=== PATIENT | male | born 1980 | race Two or more races ===

== ENCOUNTER 2019-04-20 14:11 | Emergency (ER) | payer MEDICAID ==
[~2019-04-20] VITALS: Ht 165.1 cm; Wt 63.5 kg
--- NOTE | 2019-04-20 14:27 | NUR ---
PT CAME TO ER BED 7 C/O RIGHT LOWER ABDOMINAL PAIN. PT STATES THAT HE ALSO HAS CHEST PAIN THAT RIGHT LOWER ABDOMINAL PAIN. AAOX4. NO SOB. BREATHING EVENLY AND UNLABORED. CONNECTED TO MONITOR.
[2019-04-20] MEDS ORDERED: ONDANSETRON HCL/PF 4 MG/2 ML VIAL IVP ONE (14:30)
[2019-04-20] MEDS ORDERED: IV NS 0.9% 1,000 ML BAG IV ONE (14:30)
[2019-04-20] MEDS ORDERED: ONDANSETRON HCL/PF 4 MG/2 ML VIAL ONE (14:32)
[2019-04-20 14:39] LABS: BASOPHILS # (AUTO) 0.1 /CMM (0.0-0.2); BASOPHILS % (AUTO) 0.5 % (0.0-2.0); EOSINOPHILS % (AUTO) 0.6 % (0.0-6.0); HEMATOCRIT 50 % (39-51); HEMOGLOBIN 17.3 g/dL (13.5-17.5); LYMPHOCYTES # (AUTO) 1.7 /CMM (0.8-4.8); LYMPHOCYTES % (AUTO) 17.4 % (20.0-44.0); MEAN CORPUSCULAR HGB CONC 35 g/dl (31.0-36.0); MEAN CORPUSCULAR VOLUME 105 fL (80-96); MONOCYTES # (AUTO) 1.1 /CMM (0.1-1.30); MONOCYTES % (AUTO) 10.7 % (2.0-12.0); NEUTROPHILS % (AUTO) 70.8 % (43.0-81.0); PLATELET COUNT (AUTO) 229 /CMM (150-450); RED BLOOD CELL COUNT(AUTO) 4.78 MIL/uL (4.5-6.0); WHITE BLOOD COUNT (AUTO) 9.9 K/uL (4.3-11.0)
[2019-04-20 14:46] LABS: CALCIUM, SERUM 9.5 mg/dL (8.5-10.1); CARBON DIOXIDE 28 mmol/L (21-32); CHLORIDE 101 mmol/L (98-107); CREATININE 0.9 mg/dL (0.6-1.3); GLUCOSE 122 mg/dL (74-106); POTASSIUM 3.5 mmol/L (3.5-5.1); SODIUM SERUM 139 mmol/L (136-145); UREA NITROGEN, BLOOD 10 mg/dL (7-18)
[2019-04-20 14:52] LABS: ALANINE AMINOTRANSFERASE 40 U/L (12-78); ALCOHOL, BLOOD < 3 mg/dL (0-0); ALKALINE PHOSPHATASE 74 U/L (46-116); ASPARTATE AMINOTRANSFERASE 24 U/L (15-37); BILIRUBIN,DIRECT 0.2 mg/dL (0.0-0.2); BILIRUBIN,TOTAL 0.7 mg/dL (0.2-1.0); LIPASE 125 U/L (73-393); TOTAL PROTEIN, SERUM 7.5 g/dL (6.4-8.2)
[2019-04-20] MEDS ORDERED: PANTOPRAZOLE 40 MG VIAL IV ONE (15:00)
[2019-04-20] MEDS ORDERED: MAG HYDROX/AL HYDROX/SIMETH 30 ML UDC PO ONE (15:00)
[2019-04-20] MEDS ORDERED: LIDOCAINE VISCOUS 2% UD 15 ML UDC MM ONE (15:00)
[2019-04-20] MEDS ORDERED: PANTOPRAZOLE 40 MG VIAL ONE (15:18)
[2019-04-20] MEDS ORDERED: LIDOCAINE VISCOUS 2% UD 15 ML UDC ONE (15:18)
[2019-04-20] MEDS ORDERED: MAG HYDROX/AL HYDROX/SIMETH 30 ML UDC ONE (15:19)
[2019-04-20 15:57] VITALS: BP 115/73
--- NOTE | 2019-04-20 15:59 | NUR ---
IV removed. Catheter intact and site benign. Pressure and 4x4 applied to site. No bleeding noted. Patient discharged to home in stable condition. Written and verbal after care instructions given. Patient verbalizes understanding of instruction.
== END 2019-04-20 15:59 | disposition home or self-care (01) ==
LOC: ER 14:11
DX: R10.13 Epigastric pain (principal); F10.10 Alcohol abuse, uncomplicated; F12.10 Cannabis abuse, uncomplicated; Y90.0 Blood alcohol level of less than 20 mg/100 ml
CPT/HCPCS: 36415; 80048; 80076; 80307; 83690; 85025; 96374; 96375; 99283; C9113; J2405; J7030; G0480